=== PATIENT | female | born 1990 | race American Indian/Alaskan Native ===

== ENCOUNTER 2020-10-11 19:06 | Emergency (ER) | payer SELFPAY ==
[2020-10-11 20:28] VITALS: BP 124/86
[2020-10-11] MEDS ORDERED: IBUPROFEN 800 MG TAB PO ONE (21:15)
--- NOTE | 2020-10-11 21:23 | Emergency Department Report ---
ED General Adult HPI - General Chief complaint: Fever Stated complaint: COUGH Time Seen by Provider: 10/11/20 21:00 Source: patient Mode of arrival: Ambulatory Limitations: No Limitations - History of Present Illness Initial comments: Patient 30-year-old -[place] female who presents for cough fever malaise x3 days., Patient states history of asthma however no wheezing at this time. There is intermittent nausea, patient denies sore throat or ear pain. Symptoms are described at 410 she denies shortness of breath at this time. Symptoms are however exacerbated by activity. Symptoms are relieved by nothing tried. Patient states had not had to use inhaler today. - Related Data Previous Rx's Medication Instructions Recorded Last Taken Type ALBUTEROL NEB's [Proventil 0.083% 2.5 mg IH Q4HRT PRN #30 nebu 03/06/17 Unknown Rx NEBS] D5w/0.45% NaCl [D5/0.45NS] 75 ml IV DIRECT #1 bag 03/06/17 Unknown Rx Enoxaparin 40 mg SUB-Q Q12H syringe 03/06/17 Unknown Rx Ferrous Sulfate [Feosol 325 MG tab] 325 mg PO BID tablet 03/06/17 Unknown Rx Insulin Regular, Human [HumuLIN R] 0 units SUB-Q Q6HR units 03/06/17 Unknown Rx Min Oil/Petrolatum [Artificial 1 applic OU Q4HR PRN #1 tube 03/06/17 Unknown Rx Tears Ophth Oint] Ondansetron [Zofran INJ] 4 mg IV Q8H PRN #10 vial 03/06/17 Unknown Rx Petrolatum,White [Vaseline Lip 1 applic TP Q2HR PRN #10 tube 03/06/17 Unknown Rx Therapy] Sodium Bicarbonate 325 mg FEEDTUBE PRN PRN #20 tablet 03/06/17 Unknown Rx Naproxen 500 mg PO BID PRN #30 tablet 10/12/20 Unknown Rx Ondansetron [Zofran Odt] 4 mg PO Q8HR #12 tab.rapdis 10/12/20 Unknown Rx Allergies Allergy/AdvReac Type Severity Reaction Status Date / Time amoxicillin Allergy Vomiting Verified 02/27/17 14:56 Penicillins Allergy Unknown Verified 02/27/17 14:56 ED Review of Systems ROS: Stated complaint: COUGH Other details as noted in HPI Constitutional: chills, fever, malaise Eyes: as per HPI ENT: denies: ear pain, throat pain, congestion Respiratory: cough Cardiovascular: denies: chest pain, palpitations Endocrine: no symptoms reported Gastrointestinal: nausea, vomiting. denies: abdominal pain, diarrhea, constipation Genitourinary: dysuria, frequency. denies: urgency, hematuria, discharge Musculoskeletal: back pain Skin: denies: rash, lesions Neurological: denies: headache, weakness, paresthesias Psychiatric: denies: anxiety, depression Hematological/Lymphatic: denies: easy bleeding, easy bruising ED Past Medical Hx - Past Medical History Previous Medical History?: Yes Hx Congestive Heart Failure: No Hx Diabetes: No Hx Deep Vein Thrombosis: No Hx Asthma: Yes Hx COPD: No Additional medical history: Meningitis - Surgical History Past Surgical History?: Yes Hx Pacemaker: No Hx Internal Defibrillator: No Additional Surgical History: Ectopic . - Social History Smoking Status: Current Every Day Smoker Substance Use Type: None - Medications Home Medications: Home Medications Medication Instructions Recorded Confirmed Last Taken Type ALBUTEROL NEB's [Proventil 0.083% 2.5 mg IH Q4HRT PRN #30 nebu 03/06/17 Unknown Rx NEBS] D5w/0.45% NaCl [D5/0.45NS] 75 ml IV DIRECT #1 bag 03/06/17 Unknown Rx Enoxaparin 40 mg SUB-Q Q12H syringe 03/06/17 Unknown Rx Ferrous Sulfate [Feosol 325 MG tab] 325 mg PO BID tablet 03/06/17 Unknown Rx Insulin Regular, Human [HumuLIN R] 0 units SUB-Q Q6HR units 03/06/17 Unknown Rx Min Oil/Petrolatum [Artificial 1 applic OU Q4HR PRN #1 tube 03/06/17 Unknown Rx Tears Ophth Oint] Ondansetron [Zofran INJ] 4 mg IV Q8H PRN #10 vial 03/06/17 Unknown Rx Petrolatum,White [Vaseline Lip 1 applic TP Q2HR PRN #10 tube 03/06/17 Unknown Rx Therapy] Sodium Bicarbonate 325 mg FEEDTUBE PRN PRN #20 tablet 03/06/17 Unknown Rx Naproxen 500 mg PO BID PRN #30 tablet 10/12/20 Unknown Rx Ondansetron [Zofran Odt] 4 mg PO Q8HR #12 tab.rapdis 10/12/20 Unknown Rx ED Physical Exam - General Limitations: No Limitations General appearance: alert, in no apparent distress - Head Head exam: Present: atraumatic, normocephalic - Eye Eye exam: Present: normal appearance, PERRL, EOMI Pupils: Present: normal accommodation - ENT ENT exam: Present: normal exam, normal orophraynx, mucous membranes moist, TM's normal bilaterally, normal external ear exam - Neck Neck exam: Present: normal inspection, full ROM. Absent: tenderness, meningis mus, lymphadenopathy, thyromegaly - Respiratory Respiratory exam: Present: normal lung sounds bilaterally, chest wall tenderness (right anterior lateral chest wall tenderness to deep palpation). Absent: respiratory distress, wheezes, stridor - Cardiovascular Cardiovascular Exam: Present: regular rate, normal rhythm, normal heart sounds - GI/Abdominal GI/Abdominal exam: Present: soft, normal bowel sounds. Absent: distended, tenderness, bruit, hernia - Rectal Rectal exam: Present: deferred - Extremities Exam Extremities exam: Present: normal inspection, full ROM. Absent: normal capillary refill - Back Exam Back exam: Present: normal inspection, full ROM, CVA tenderness (R). Absent: CVA tenderness (L) - Neurological Exam Neurological exam: Present: alert, oriented X3, CN II-XII intact, normal gait - Psychiatric Psychiatric exam: Present: normal affect, normal mood - Skin Skin exam: Present: warm, dry, intact, normal color. Absent: rash ED Course Vital Signs 10/11/20 10/11/20 20:23 21:52 Temperature 101.0 F H 101.1 F H Pulse Rate 114 H Respiratory 18 Rate Blood Pressure 124/86 O2 Sat by Pulse 98 Oximetry ED Medical Decision Making - Lab Data Labs 10/11/20 23:27 Urine Color Yellow Urine Turbidity Clear Urine pH 6.0 Ur Specific [place] 1.011 Urine Protein <15 mg/dl Urine Glucose (UA) Neg Urine Ketones Tr Urine Blood Neg Urine Nitrite Neg Urine Bilirubin Neg Urine Urobilinogen 4.0 Ur Leukocyte Esterase Tr Urine WBC (Auto) 3.0 Urine RBC (Auto) 3.0 U Epithel Cells (Auto) 9.0 Urine Mucus Few Urine HCG, Qual Negative - Radiology Data Radiology results: report reviewed, image reviewed CHEST 2 VIEWS INDICATION / CLINICAL INFORMATION: cough fever. COMPARISON: 03/06/2017 FINDINGS: SUPPORT DEVICES: None. HEART / MEDIASTINUM: No significant abnormality. LUNGS / PLEURA: No significant pulmonary or pleural abnormality. No pneumothorax. Incidental finding of calcified granuloma in the right lung base. ADDITIONAL FINDINGS: No significant additional findings. IMPRESSION: 1. No acute findings. No interval change. Signer Name: Latesha Dunn MD Signed: 10/12/2020 12:31 AM Workstation Name: [id number] Transcribed By: Dictated By: Latesha Dunn MD Electronically Authenticated By: Latesha Dunn MD Signed Date/Time: 10/12/2030 DD/ TD/TT: - Medical Decision Making Chest x-ray normal no infiltrates no opacities, UA normal no leukocytes no bacteria, lungs are clear throughout no wheezing no stridor, airways patent no exudate no stridor, symptoms are relieved with [id number] medication given in ED. Patient will be DC'd to home in stable condition at this time diagnosis viral syndrome, patient verbalized agreement and understanding of discharge plan, patient DC'd home in stable condition at this time. Critical care attestation.: If time is entered above; I have spent that time in minutes in the direct care of this critically ill patient, excluding procedure time. ED Disposition Clinical Impression: Viral syndrome Disposition: DC-01 TO HOME OR SELFCARE Is pt being admited?: No Does the pt Need Aspirin: No Condition: Stable Instructions: Viral Illness, Adult Additional Instructions: Take medications as prescribed, hydrate as directed, follow-up with primary care doctor in 2 to 3 days. Return to emergency department should symptoms worsen. Prescriptions: Naproxen 500 mg PO BID PRN #30 tablet PRN Reason: pain fever Ondansetron [Zofran Odt] 4 mg PO Q8HR #12 tab.rapdis Referrals: CANDY PEÑA MD [Staff Physician] - 3-5 Days Forms: Work/School Release Form(ED) Time of Disposition: 01:37
[2020-10-11 23:39] LABS: Bilirubin,Urine NEG (Negative); Blood,Urine NEG (Negative); Color,Urine Yellow (Yellow); Mucus,Urine FEW /HPF; Protein,Urine <15 mg/dL mg/dL (Negative)
[2020-10-11 23:43] LABS: HCG Qualitative,Urine Negative (Negative)
--- NOTE | 2020-10-12 00:35 | XRay Report ---
CHEST 2 VIEWS INDICATION / CLINICAL INFORMATION: cough fever. COMPARISON: 03/06/2017 FINDINGS: SUPPORT DEVICES: None. HEART / MEDIASTINUM: No significant abnormality. LUNGS / PLEURA: No significant pulmonary or pleural abnormality. No pneumothorax. Incidental finding of calcified granuloma in the right lung base. ADDITIONAL FINDINGS: No significant additional findings. IMPRESSION: 1. No acute findings. No interval change. Signer Name: Latesha Dunn MD Signed: 10/12/2020 12:31 AM Workstation Name: [id number]
== END 2020-10-12 02:15 | disposition home or self-care (01) ==
LOC: ED 19:06
DX: B34.9 Viral infection, unspecified (principal); R05 Cough; R50.9 Fever, unspecified; J45.909 Unspecified asthma, uncomplicated; F17.200 Nicotine dependence, unspecified, uncomplicated; Z98.890 Other specified postprocedural states; Z79.899 Other long term (current) drug therapy; Z79.4 Long term (current) use of insulin; Z88.0 Allergy status to penicillin; Z88.1 Allergy status to other antibiotic agents
CPT/HCPCS: 71046; 81001; 81025; 99284